=== PATIENT | male | born 1945 | race Caucasian/White ===

== ENCOUNTER 2020-06-04 13:27 | Inpatient (IN) ==
[2020-06-04] MEDS ORDERED: Acetaminophen 325 MG TABLET PO PRN (16:53)
[2020-06-04] MEDS ORDERED: Ondansetron ODT 4 MG TAB.RAPDIS SL PRN (16:53)
[2020-06-04] MEDS ORDERED: Naloxone 0.4 MG/ML INJ IVP PRN (16:53)
[2020-06-04] MEDS ORDERED: Mag Hydrox/Al Hydrox/Simeth 30 ML UDC PO PRN (16:53)
[2020-06-04] MEDS ORDERED: MOM Conc 10 ML UD.LIQ PO PRN (16:53)
[2020-06-04 17:32] LABS: Hematocrit 30.9 % (37.5-50.1); Hemoglobin 9.8 g/dL (12.9-16.9); Mean Corpuscular HGB Conc 31.7 g/dL (31.6-35.5); Mean Corpuscular Hemoglobin 26.6 pg (28.0-33.3); Mean Platelet Volume 9.2 fL (9.4-12.4); Platelet Count 340 K/mcL (140-400); Red Blood Count 3.68 M/mcL (4.19-5.50); Red Cell Distribution Width 14.4 % (11.5-14.5)
[2020-06-04 17:40] LABS: INR 1.1; Prothrombin Time 12.7 Seconds (9.4-12.1)
[2020-06-04 17:41] LABS: Heparin anti-factor XA UFH 0.08 IU/mL (0.30-0.70)
[2020-06-04] MEDS ORDERED: Dextrose Gel 15 GM/37.5 ML TUBE PO PRN ×2 (18:32)
[2020-06-04] MEDS ORDERED: *HR* Dextrose 50 % in Water (Vial) 50 ML VIAL IVP PRN (18:32)
[2020-06-04] MEDS ORDERED: D5% in Water 1,000 ML IVC PRN (18:32)
[2020-06-04] MEDS: Heparin 25,000 UNIT/250 ML D5W 25,000 UNIT/250 ML IV.SOLN IVC SCH (18:43)
[2020-06-04] MEDS: *HR* HYDROcodone/Acet 5/325 mg TABLET PO PRN (18:43)
[2020-06-04] MEDS ORDERED: Insulin LISPRO 300 UNITS/3 ML VIAL SQ ONE (20:42)
[2020-06-04] MEDS: Insulin LISPRO 300 UNITS/3 ML VIAL SQ SCH (21:08)
[2020-06-05 00:31] LABS: Hematocrit 28.9 % (37.5-50.1); Hemoglobin 9.1 g/dL (12.9-16.9); Mean Corpuscular HGB Conc 31.5 g/dL (31.6-35.5); Mean Corpuscular Hemoglobin 26.5 pg (28.0-33.3); Mean Corpuscular Volume 84.3 fL (83.0-100.0); Mean Platelet Volume 8.9 fL (9.4-12.4); Platelet Count 313 K/mcL (140-400); Red Blood Count 3.43 M/mcL (4.19-5.50); Red Cell Distribution Width 14.4 % (11.5-14.5); White Blood Count 8.4 K/mcL (4.3-11.1)
[2020-06-05 00:51] LABS: BUN/Creatinine Ratio 20 (6-26); Blood Urea Nitrogen 17 mg/dL (8-23); Calcium 8.4 mg/dL (8.6-10.3); Carbon Dioxide 25 mEq/L (23-29); Chloride 103 mEq/L (98-107); Chol/HDL Ratio 2.7 (0-4.9); Cholesterol 117 mg/dL (< 200); Glucose 242 mg/dL (70-105); HDL Cholesterol 44 mg/dL (40-59); LDL Cholesterol,Calculated 56 mg/dL (< 100); Magnesium 1.6 mg/dL (1.6-2.6); Osmolality,Calculated 294 (280-300); Potassium 3.6 mEq/L (3.5-5.1); Sodium 137 mEq/L (136-145); Triglycerides 85 mg/dL (< 150); eGFR For African Americans > 60 (> 60); eGFR For Non-African Americans > 60 (> 60)
[2020-06-05] MEDS: *HR* Heparin 5,000 UNIT/ML VIAL IVP PRN ×4 (00:55→23:33)
[2020-06-05] MEDS ORDERED: Insulin LISPRO 300 UNITS/3 ML VIAL SQ ONE (06:23)
[2020-06-05] MEDS: *HR* HYDROcodone/Acet 5/325 mg TABLET PO PRN (06:34)
[2020-06-05] MEDS ORDERED: Perflutren Lipid Microsphere 1.3 ML in 0.9 % Sodium Chloride 8.7 ML IVP ONE (06:50)
[2020-06-05] MEDS: Insulin LISPRO 300 UNITS/3 ML VIAL SQ SCH ×6 (07:45→20:40)
[2020-06-05] MEDS ORDERED: Nitroglycerin 0.4 MG TAB.SUBL SL PRN (08:37)
[2020-06-05] MEDS ORDERED: Metoprolol XL (24 HR) Succ 50 MG TAB.ER.24H PO SCH (09:00)
[2020-06-05] MEDS ORDERED: NON-FORMULARY MEDICATION 1 EACH EACH (Atorvastatin Calcium [Lipitor] 20 MG) PO SCH (09:00)
[2020-06-05] MEDS: Aspirin Enteric Coated 81 MG Tablet PO SCH (11:13)
[2020-06-05] MEDS: lisinopriL 20 MG TABLET PO SCH (11:14)
[2020-06-05] MEDS: Nitroglycerin 1 INCH/GM PACKET TP SCH ×2 (11:14→11:55)
[2020-06-05] MEDS: cilostazoL 100 MG TABLET PO SCH ×2 (11:14→21:15)
[2020-06-05] MEDS: Metoprolol XL (24 HR) Succ 50 MG TAB.ER.24H PO SCH (11:14)
[2020-06-05] MEDS: Insulin DETEMIR 100 UNIT/ML X5UNITS SQ SCH (11:14)
[2020-06-05] MEDS: Heparin 25,000 UNIT/250 ML D5W 25,000 UNIT/250 ML IV.SOLN IVC SCH (18:31)
[2020-06-06 06:13] LABS: Hematocrit 28.1 % (37.5-50.1); Hemoglobin 8.8 g/dL (12.9-16.9); Mean Corpuscular HGB Conc 31.3 g/dL (31.6-35.5); Mean Corpuscular Hemoglobin 26.1 pg (28.0-33.3); Mean Corpuscular Volume 83.4 fL (83.0-100.0); Mean Platelet Volume 9.2 fL (9.4-12.4); Platelet Count 310 K/mcL (140-400); Red Blood Count 3.37 M/mcL (4.19-5.50); Red Cell Distribution Width 14.3 % (11.5-14.5); White Blood Count 7.9 K/mcL (4.3-11.1)
[2020-06-06 06:33] LABS: BUN/Creatinine Ratio 24 (6-26); Blood Urea Nitrogen 17 mg/dL (8-23); Calcium 8.3 mg/dL (8.6-10.3); Carbon Dioxide 30 mEq/L (23-29); Chloride 102 mEq/L (98-107); Glucose 111 mg/dL (70-105); Magnesium 1.7 mg/dL (1.6-2.6); Osmolality,Calculated 286 (280-300); Potassium 3.4 mEq/L (3.5-5.1); Sodium 137 mEq/L (136-145); eGFR For African Americans > 60 (> 60); eGFR For Non-African Americans > 60 (> 60)
[2020-06-06] MEDS: Nitroglycerin 1 INCH/GM PACKET TP SCH ×2 (06:43→11:45)
[2020-06-06] MEDS: Insulin LISPRO 300 UNITS/3 ML VIAL SQ SCH ×7 (07:36→22:00)
[2020-06-06] MEDS: Insulin DETEMIR 100 UNIT/ML X5UNITS SQ SCH (09:33)
[2020-06-06] MEDS: cilostazoL 100 MG TABLET PO SCH ×2 (09:33→22:17)
[2020-06-06] MEDS: lisinopriL 20 MG TABLET PO SCH (09:33)
[2020-06-06] MEDS: Aspirin Enteric Coated 81 MG Tablet PO SCH (09:33)
[2020-06-06] MEDS: Metoprolol XL (24 HR) Succ 50 MG TAB.ER.24H PO SCH (09:33)
[2020-06-06] MEDS: Heparin 25,000 UNIT/250 ML D5W 25,000 UNIT/250 ML IV.SOLN IVC SCH (13:49)
[2020-06-07] MEDS: Heparin 25,000 UNIT/250 ML D5W 25,000 UNIT/250 ML IV.SOLN IVC SCH (04:43)
[2020-06-07 07:02] LABS: Basophils % 0.4 %; Eosinophils # 0.1 K/mcL (0.0-0.6); Eosinophils % 0.6 %; Hematocrit 29.8 % (37.5-50.1); Hemoglobin 9.3 g/dL (12.9-16.9); Immature Granulocytes % 0.3 % (0-4); Lymphocytes # 1.4 K/mcL (0.6-4.6); Lymphocytes % 17.7 %; Mean Corpuscular HGB Conc 31.2 g/dL (31.6-35.5); Mean Corpuscular Hemoglobin 26.1 pg (28.0-33.3); Mean Corpuscular Volume 83.7 fL (83.0-100.0); Mean Platelet Volume 8.9 fL (9.4-12.4); Monocytes # 0.5 K/mcL (0.0-1.3); Monocytes % 6.2 %; Neutrophils # 5.8 K/mcL (1.6-8.9); Platelet Count 349 K/mcL (140-400); Red Blood Count 3.56 M/mcL (4.19-5.50); Red Cell Distribution Width 14.5 % (11.5-14.5); Segmented Neutrophils % 74.8 %; White Blood Count 7.8 K/mcL (4.3-11.1)
[2020-06-07 07:24] LABS: % Iron Saturation 18 % (20-55); Alanine Aminotransferase 25 Units/L (7-52); Albumin/Globulin Ratio 0.9 (1.1-2.2); Alkaline Phosphatase 81 Units/L (34-104); Aspartate Amino Transferase 26 Units/L (13-39); BUN/Creatinine Ratio 23 (6-26); Bilirubin,Total 0.3 mg/dL (0.3-1.0); Blood Urea Nitrogen 17 mg/dL (8-23); Calcium 8.5 mg/dL (8.6-10.3); Carbon Dioxide 28 mEq/L (23-29); Chloride 104 mEq/L (98-107); Globulin 3.4 g/dL (2.4-3.5); Glucose 160 mg/dL (70-105); Iron 37 mcg/dL (65-175); Osmolality,Calculated 295 (280-300); Potassium 3.6 mEq/L (3.5-5.1); Sodium 140 mEq/L (136-145); Total Protein 6.4 g/dL (6.4-8.9); Transferrin 147 mg/dL (203-362); eGFR For African Americans > 60 (> 60); eGFR For Non-African Americans > 60 (> 60)
[2020-06-07 07:40] LABS: Ferritin 573 ng/mL (20-250)
[2020-06-07 07:53] LABS: Folate 12.5 ng/mL (3.0-16.0)
[2020-06-07] MEDS: cilostazoL 100 MG TABLET PO SCH ×2 (10:18→21:53)
[2020-06-07] MEDS: lisinopriL 20 MG TABLET PO SCH (10:18)
[2020-06-07] MEDS: Aspirin Enteric Coated 81 MG Tablet PO SCH (10:18)
[2020-06-07] MEDS: Metoprolol XL (24 HR) Succ 50 MG TAB.ER.24H PO SCH (10:18)
[2020-06-07] MEDS: *HR* HYDROcodone/Acet 5/325 mg TABLET PO PRN (10:23)
[2020-06-07] MEDS: Insulin LISPRO 300 UNITS/3 ML VIAL SQ SCH ×7 (10:24→21:55)
[2020-06-07] MEDS: Thiamine (B-1) 100 MG in 0.9 % Sodium Chloride 50 ML IVPB SCH (10:24)
[2020-06-07] MEDS: Insulin DETEMIR 100 UNIT/ML X5UNITS SQ SCH (11:50)
[2020-06-07] MEDS ORDERED: Cyanocobalamin (B-12) 1,000 MCG/ML VIAL IM ONE (15:02)
[2020-06-07] MEDS ORDERED: SODIUM CHLORIDE/NAHCO3/KCL/PEG 4,000 ML SOLN.RECON PO ONE (17:00)
[2020-06-07] MEDS: *HR* Heparin 5,000 UNIT/ML VIAL SQ SCH (17:30)
[2020-06-08 03:22] LABS: Basophils % 0.6 %; Eosinophils # 0.1 K/mcL (0.0-0.6); Eosinophils % 0.8 %; Hematocrit 29.6 % (37.5-50.1); Hemoglobin 9.4 g/dL (12.9-16.9); Immature Granulocytes % 0.3 % (0-4); Lymphocytes # 1.3 K/mcL (0.6-4.6); Lymphocytes % 20.3 %; Mean Corpuscular HGB Conc 31.8 g/dL (31.6-35.5); Mean Corpuscular Hemoglobin 26.9 pg (28.0-33.3); Mean Corpuscular Volume 84.6 fL (83.0-100.0); Mean Platelet Volume 8.9 fL (9.4-12.4); Monocytes # 0.5 K/mcL (0.0-1.3); Monocytes % 7.5 %; Neutrophils # 4.5 K/mcL (1.6-8.9); Platelet Count 362 K/mcL (140-400); Red Cell Distribution Width 14.4 % (11.5-14.5); Segmented Neutrophils % 70.5 %; White Blood Count 6.4 K/mcL (4.3-11.1)
[2020-06-08 03:47] LABS: BUN/Creatinine Ratio 20 (6-26); Blood Urea Nitrogen 13 mg/dL (8-23); Calcium 8.7 mg/dL (8.6-10.3); Carbon Dioxide 26 mEq/L (23-29); Chloride 102 mEq/L (98-107); Glucose 121 mg/dL (70-105); Osmolality,Calculated 285 (280-300); Potassium 3.7 mEq/L (3.5-5.1); Sodium 137 mEq/L (136-145); eGFR For African Americans > 60 (> 60); eGFR For Non-African Americans > 60 (> 60)
[2020-06-08] MEDS: *HR* Heparin 5,000 UNIT/ML VIAL SQ SCH ×2 (06:10→18:02)
[2020-06-08] MEDS: Insulin DETEMIR 100 UNIT/ML X5UNITS SQ SCH (08:53)
[2020-06-08] MEDS: Insulin LISPRO 300 UNITS/3 ML VIAL SQ SCH ×6 (08:53→21:06)
[2020-06-08] MEDS: Metoprolol XL (24 HR) Succ 50 MG TAB.ER.24H PO SCH (08:59)
[2020-06-08] MEDS: lisinopriL 20 MG TABLET PO SCH (08:59)
[2020-06-08] MEDS: Thiamine (B-1) 100 MG in 0.9 % Sodium Chloride 50 ML IVPB SCH (08:59)
[2020-06-08] MEDS: Aspirin Enteric Coated 81 MG Tablet PO SCH (08:59)
[2020-06-08] MEDS: cilostazoL 100 MG TABLET PO SCH ×2 (09:00→21:06)
[2020-06-08] MEDS: *HR* HYDROcodone/Acet 5/325 mg TABLET PO PRN ×2 (09:04→18:02)
[2020-06-08] MEDS: Cyanocobalamin (B-12) 1,000 MCG/ML VIAL IM SCH (18:02)
[2020-06-08] MEDS ORDERED: Melatonin 3 MG TABLET PO SCH (21:00)
[2020-06-09 02:46] LABS: Basophils % 0.2 %; Eosinophils % 0.4 %; Hematocrit 29.7 % (37.5-50.1); Hemoglobin 9.2 g/dL (12.9-16.9); Immature Granulocytes % 0.4 % (0-4); Lymphocytes % 9.4 %; Mean Corpuscular Hemoglobin 26.4 pg (28.0-33.3); Mean Corpuscular Volume 85.3 fL (83.0-100.0); Monocytes # 0.5 K/mcL (0.0-1.3); Neutrophils # 8.8 K/mcL (1.6-8.9); Platelet Count 386 K/mcL (140-400); Red Blood Count 3.48 M/mcL (4.19-5.50); Red Cell Distribution Width 14.6 % (11.5-14.5); Segmented Neutrophils % 84.6 %; White Blood Count 10.4 K/mcL (4.3-11.1)
[2020-06-09 02:59] LABS: BUN/Creatinine Ratio 20 (6-26); Blood Urea Nitrogen 14 mg/dL (8-23); Calcium 8.5 mg/dL (8.6-10.3); Carbon Dioxide 27 mEq/L (23-29); Chloride 102 mEq/L (98-107); Glucose 145 mg/dL (70-105); Osmolality,Calculated 287 (280-300); Potassium 3.9 mEq/L (3.5-5.1); Sodium 137 mEq/L (136-145); eGFR For African Americans > 60 (> 60); eGFR For Non-African Americans > 60 (> 60)
[2020-06-09] MEDS: *HR* Heparin 5,000 UNIT/ML VIAL SQ SCH (05:12)
[2020-06-09] MEDS: Aspirin Enteric Coated 81 MG Tablet PO SCH (08:36)
[2020-06-09] MEDS: Metoprolol XL (24 HR) Succ 50 MG TAB.ER.24H PO SCH (08:36)
[2020-06-09] MEDS: cilostazoL 100 MG TABLET PO SCH (08:36)
[2020-06-09] MEDS: Insulin DETEMIR 100 UNIT/ML X5UNITS SQ SCH (08:37)
[2020-06-09] MEDS: Cyanocobalamin (B-12) 1,000 MCG/ML VIAL IM SCH (08:37)
[2020-06-09] MEDS: lisinopriL 20 MG TABLET PO SCH (08:37)
[2020-06-09] MEDS: Insulin LISPRO 300 UNITS/3 ML VIAL SQ SCH ×2 (08:38→13:01)
[2020-06-09] MEDS: Thiamine (B-1) 100 MG in 0.9 % Sodium Chloride 50 ML IVPB SCH (08:38)
[2020-06-09 15:29] VITALS: BP 149/80
== END 2020-06-09 17:21 | disposition home or self-care (01) | DRG 280 ==
LOC: 2ANU → SUATTDRO 17:57 → 2ANU 06-07 14:50
PROVIDERS: ADMIT Internal Medicine; ATTEND Internal Medicine
PROC: ENDOEBX (2020-06-08 13:00)